=== PATIENT | male | born 1970 | race Caucasian/White ===

== ENCOUNTER 2016-12-05 23:08 | Emergency (ER) | payer OTHER ==
[~2016-12-05] VITALS: Ht 177.8 cm; Wt 68.0 kg
[~2016-12-05 23:08] MED LIST: ACCUNEB SO1.25 MG/1 INH; ALBUTEROL INH; ALPRAZOLAM; AUGMENTIN 875-1 EACH PO; AUGMENTIN 875875 MG PO; BACTRIM DS TAB1 EACH PO; CARISOPRODOL 3350 MG PO; CIPROFLOXACIN500 M1 PO; CITRATE OF MAG296 ML PO; CLEOCIN HCL150 MG PO; CLEOCIN HCL300 MG PO; COLACE100 MG PO; COMBIVIR; COMBIVIR PO; COMBIVIR TABLE1 EACH; DAPSONE100 MG PO; DOXYCYCLINE 10100 M1 PO; DOXYCYCLINE 10100 MG PO; EPSICOM; EPZICOM1 TA1 PO; FLEXERIL PO; HIV MED; HYDROCODON-ACE1 EAC1 PO; HYDROCODON-ACE1 EAC7; HYDROCODON-ACE1 EAC7 PO; HYDROCODON-ACE1 EACH PO; IBUPROFEN 600600 M1 PO; IBUPROFEN 800800 M1 PO; IBUPROFEN 800800 MG PO; KALETRA 200-501 EACH PO; KEFLEX250 MG PO; KEFLEX500 MG PO; LORTAB 5 MG/5001 TA1 PO; NAPROSYN500 MG PO; NORCO 5-325 TA1 EACH PO; OXYBUTYNIN 5 MG5 M2 PO; OXYCODONE HCL 55 MG PO; OXYCONTIN20 MG PO; PROAIR HFA8.5 GM INH; ROXICODONE5 M2 PO; TOBREX3.5 GM OP; TOBREX5 ML OPHTHALMIC; TRAMADOL 50 MG50 MG PO; TUSSIONEX PENN473 ML PO; ULTRAM 50MG TAB50 MG PO; VALIUM5 MG PO; VICOPROFEN 2001 EAC1 PO; XANAX 0.25 MG0.25 MG; XANAX 0.25 MG0.25 MG PO; XANAX 0.5 MG0.5 M1 PO; ZPAK PO; [UNRECOGNIZED DRUG - REMARK]
[2016-12-05 23:10] VITALS: BP 122/80
[2016-12-05] MEDS ORDERED: PREDNISONE 20 M20 MG PO (23:43)
[2016-12-05] MEDS ORDERED: GENTAMICIN SU3 MG/ML OPHTHALMIC (23:43)
== END 2016-12-06 | disposition home or self-care (01) ==
LOC: ER 23:08
DX: H16.133 Photokeratitis, bilateral (principal); F17.210 Nicotine dependence, cigarettes, uncomplicated; Z21 Asymptomatic human immunodeficiency virus [HIV] infection status; Z88.6 Allergy status to analgesic agent; Z88.2 Allergy status to sulfonamides

== ENCOUNTER 2017-01-22 09:25 | Inpatient (IN) | payer OTHER ==
[~2017-01-22] VITALS: Ht 177.8 cm; Wt 61.2 kg
--- NOTE | ~2017-01-22 | HC ---
[facility] [place] [address] CONSULTATION Name: MARLON WOMACK RAYNE Room #: 439-P [facility] IN M.R.#: [id number] Admission: 01/22/17 Attend Phys: Jeramy Lion Discharge: Date of : 66 Report #: [id number] THIS REPORT FOR: //name// CC: Jeramy Mosquera DATE OF SERVICE: 01/22/2017 REASON FOR CONSULTATION: I was asked to evaluate concerning fever in the setting of HIV. HISTORY OF PRESENT ILLNESS: The patient is a 46-year-old who has been off his antiretrovirals for last several months due to GI upset. He presents now with a 48 hours history of fever, chills, nausea and vomiting, been constipated, associated with myalgias, arthralgias and headache. No cough or sputum production. He has had some dysuria. Last stool has been several days ago. No rash. No arthritis symptoms. He has had no travel outside the [place]. He states he lives alone. He is on disability. No reported opportunistic infections. He does not know what his viral load or CD4 count is. ALLERGIES: SULFA, TYLENOL. MEDICATIONS: As noted on his MAR, on no medications prior to his admission. PAST MEDICAL HISTORY: Hepatitis C, HIV, multiple knee surgeries, left facial reconstruction, multiple head injuries, bilateral herniorrhaphy soft tissue infection of his foot. FAMILY HISTORY: Noncontributory. SOCIAL HISTORY: He is a smoker of cigarettes. No significant alcohol intake, previous marijuana screen, denies any IV drug use. REVIEW OF SYSTEMS: Noted above. PHYSICAL EXAMINATION: VITAL SIGNS: Temperature is 38.4, pulse 103, blood pressure 98/63. GENERAL: The patient was diaphoretic, multiple tattoos. No rash. He was in significant discomfort, lying face down on his bed on arrival. He did not rollover to allow me to complete his examination. No adenopathy. HEENT: Eyes: Conjunctival injection. Mouth: Dentures, otherwise unremarkable. NECK: Supple, no adenopathy. LUNGS: Clear. HEART: Tachycardic and regular. ABDOMEN: Soft. Very mild left lower quadrant tenderness. No mass, no guarding [facility] [address] [place] [address] CONSULTATION Name: MARLON WOMACK Room #: [address] [place] [address] [place] ..#: [id number] Admission: 01/22/17 Attend Phys: Jeramy Lion Discharge: Date of : 66 Report #: [id number] or rebound. No hepatosplenomegaly or mass. Perirenal examination was normal. EXTREMITIES: Unremarkable. NEUROLOGIC: Nonfocal. LABORATORY STUDIES: Hemoglobin 13.3, white count 7.3, differential unremarkable, platelet count 307,000. Sodium 131, potassium 4, bicarbonate 24, creatinine 1.3. Liver function tests normal. Lactate 1.4, flu antigen negative. Blood culture is pending. Chest x-ray clear. IMPRESSION: A 46-year-old HIV, suspected AIDS with fever, indeterminate etiology. Suspect secondary infection, community acquired would be most likely, urinary tract infection yet not ruled out, opportunistic infection also considered. Recommend broad antibiotic coverage after cultures of urine and blood have been obtained. Obtain a CD4 count. Rehydrate and reevaluate tomorrow. We will need to monitor his abdominal symptoms right now, did not appear to have an acute abdomen. His lipase was normal. We will also check urine drug screen. <ELECTRONICALLY SIGNED> By: Luca Jolly MD 01/23/17 0844 [id number] [id number] Luca Jolly MD /nt
[~2017-01-22 09:25] MED LIST changes: +GENTAMICIN SU3 MG/ML OPHTHALMIC; +PREDNISONE 20 M20 MG PO
[2017-01-22 09:27] VITALS: BP 98/63
[2017-01-22 10:43] LABS: ABSOLUTE NEUTROPHILS 5.8 thou/uL (1.4-8.2); BASOPHILS 0.4 % (0.0-2.0); EOSINOPHILS 2.2 % (0.0-3.0); HEMOGLOBIN 13.3 gm/dL (14.0-18.0); MCH 27.9 pg (26.0-34.0); MCHC 33.2 g/dL (28.0-37.0); MCV 83.9 fL (80.0-100.0); PLATELET COUNT 307 thou/uL (150-400); POLYS 79.4 % (36.0-66.0); RBC 4.77 mil/uL (4.50-6.00); RDW 13.2 % (10.5-14.5); WBC 7.3 thou/uL (4.0-11.0)
[2017-01-22 10:46] LABS: MANUAL DIFF NO
[2017-01-22 10:53] LABS: ANION GAP 10 mmol/L (7-16); BUN 17 mg/dL (7-18); CHLORIDE 97 mmol/L (98-107); CO2 24 mmol/L (21-32); CREATININE 1.3 mg/dL (0.7-1.3); GLUCOSE 99 mg/dL (74-106); POTASSIUM 4.1 mmol/L (3.5-5.1); SODIUM 131 mmol/L (136-145)
[2017-01-22 10:57] LABS: ALKALINE PHOSPHATASE 86 U/L (46-116); DIRECT BILIRUBIN < 0.1 mg/dL (<0.1-0.3); SGOT 21 U/L (15-37); SGPT 20 U/L (30-65); TOTAL BILIRUBIN 0.3 mg/dL (<0.1-1.0); TOTAL PROTEIN 7.7 g/dL (6.4-8.2)
[2017-01-22 14:42] VITALS: BP 92/50
[2017-01-22 14:47] VITALS: BP 103/57
[2017-01-22 19:53] VITALS: BP 104/52
[2017-01-22 21:16] LABS: URINE BILIRUBIN NEGATIVE (Negative); URINE BLOOD TRACE (Negative); URINE COLOR YELLOW; URINE GLUCOSE-RANDOM* NEGATIVE (Negative); URINE KETONES NEGATIVE (Negative); URINE LEUKOCYTES-REFLEX 3+ (Negative); URINE PROTEIN (DIPSTICK) NEGATIVE (Negative); URINE SPECIFIC GRAVITY <= 1.005 (1.003-1.035); URINE UROBILINOGEN 0.2 E.U./dl (0.2-1.0)
[2017-01-22 21:24] LABS: AMP/METHAMP POSITIVE (Negative); BARBITURATES Negative (Negative); BENZODIAZEPINES Negative (Negative); COCAINE Negative (Negative); METHADONE Negative (Negative); OPIATES POSITIVE (Negative); PCP Negative (Negative); THC Negative (Negative)
[2017-01-22 21:31] LABS: CASTS None Seen /LPF (None Seen); CRYSTALS None Seen /LPF (None Seen); RENAL EPITHELIAL CELLS 0-3 Few /LPF (None Seen); SQUAMOUS None Seen /LPF (0-3); URINE WBC-REFLEX >25 Many /HPF (0-5)
[2017-01-22 21:32] LABS: URINE RBC 0-2 Rare /HPF (0-2)
[2017-01-23 03:23] LABS: ABSOLUTE NEUTROPHILS 3.3 thou/uL (1.4-8.2); BASOPHILS 1.1 % (0.0-2.0); EOSINOPHILS 5.3 % (0.0-3.0); HEMATOCRIT 36.6 % (42.0-52.0); HEMOGLOBIN 12.1 gm/dL (14.0-18.0); LYMPHOCYTES 14.8 % (24.0-44.0); MCH 27.6 pg (26.0-34.0); MCV 83.7 fL (80.0-100.0); MONOCYTES 7.7 % (1.0-8.0); PLATELET COUNT 263 thou/uL (150-400); POLYS 71.1 % (36.0-66.0); RBC 4.37 mil/uL (4.50-6.00); WBC 4.7 thou/uL (4.0-11.0)
[2017-01-23 03:26] LABS: MANUAL DIFF NO
[2017-01-23 03:43] LABS: ALBUMIN 2.4 g/dL (3.4-5.0); CALCIUM 7.7 mg/dL (8.5-10.1); POTASSIUM 3.7 mmol/L (3.5-5.1); TOTAL BILIRUBIN 0.2 mg/dL (<0.1-1.0); TOTAL PROTEIN 6.6 g/dL (6.4-8.2)
[2017-01-23 04:51] VITALS: BP 109/68
[2017-01-23 08:00] VITALS: BP 91/51
[2017-01-23 14:08] LABS: CD3 % 77.3 % (57.5-86.2); CD4 % 4.1 % (30.8-58.5); CD4:CD8 0.06 (0.92-3.72); CD8 % 73.3 % (12.0-35.5)
[2017-01-23 16:00] VITALS: BP 94/60
[2017-01-23 16:12] LABS: HEPATITIS C VIRUS AB 2.8 (0.0-0.9)
[2017-01-23 21:45] VITALS: BP 118/78
[2017-01-24 04:15] VITALS: BP 100/80
[2017-01-24 08:00] VITALS: BP 99/63
[2017-01-24 13:56] LABS: HEMATOCRIT 40.2 % (42.0-52.0); HEMOGLOBIN 13.4 gm/dL (14.0-18.0); MCH 27.7 pg (26.0-34.0); MCHC 33.4 g/dL (28.0-37.0); MCV 83.1 fL (80.0-100.0); RBC 4.83 mil/uL (4.50-6.00); WBC 3.9 thou/uL (4.0-11.0)
[2017-01-24 14:08] LABS: ALBUMIN 2.7 g/dL (3.4-5.0); CALCIUM 8.4 mg/dL (8.5-10.1); CREATININE 0.6 mg/dL (0.7-1.3); PHOSPHORUS 3.5 mg/dL (2.5-4.9); POTASSIUM 4.1 mmol/L (3.5-5.1)
[2017-01-24 14:59] VITALS: BP 121/81
[2017-01-24 19:13] VITALS: BP 105/71
[2017-01-25 05:26] VITALS: BP 153/73
[2017-01-25 06:41] LABS: CALCIUM 8.4 mg/dL (8.5-10.1); CREATININE 0.7 mg/dL (0.7-1.3); POTASSIUM 3.8 mmol/L (3.5-5.1)
[2017-01-25] MEDS ORDERED: DOXYCYCLINE 10100 MG PO (10:28)
[2017-01-25] MEDS ORDERED: TRAMADOL 50 MG50 MG PO (10:28)
[2017-01-25 10:40] VITALS: BP 153/73
[2017-01-27 16:06] LABS: HIV-1 BY PCR 53160 (()); HIV-1 PCR LOG 4.726 (())
== END 2017-01-25 12:53 | disposition home or self-care (01) | DRG 974 ==
LOC: ER 09:25 → 4S 13:53 → EROBS 13:53 → 4S 14:45
PROVIDERS: Emergency Medicine; Hospitalist; Specialist
DX: B20 Human immunodeficiency virus [HIV] disease (principal); J18.9 Pneumonia, unspecified organism; E43 Unspecified severe protein-calorie malnutrition; E87.1 Hypo-osmolality and hyponatremia; N39.0 Urinary tract infection, site not specified; F17.210 Nicotine dependence, cigarettes, uncomplicated; E86.1 Hypovolemia; Z88.2 Allergy status to sulfonamides; Z88.8 Allergy status to other drugs, medicaments and biological substances; Z87.81 Personal history of (healed) traumatic fracture; Z91.14 Patient's other noncompliance with medication regimen
CPT/HCPCS: 10102; 27000

== ENCOUNTER 2017-02-06 05:36 | Inpatient (IN) | payer OTHER ==
[~2017-02-06] VITALS: Ht 177.8 cm; Wt 65.9 kg
[2017-02-06] VITALS (19 sets, daily range): BP systolic 40–179; BP diastolic 25–147
--- NOTE | ~2017-02-06 | HC ---
[facility] [place] [address] CONSULTATION Name: MARLON WOMACK Room #: 242-P ADM IN M.R.#: [id number] Admission: 02/06/17 Attend Phys: Mo Ji MD Discharge: Date of : 66 Report #: [id number] THIS REPORT FOR: //name// CC: Mo Ji NO PCP REASON FOR CONSULTATION: I was asked to evaluate concerning prostatic abscess. HISTORY OF PRESENT ILLNESS: The patient is a 46-year-old HIV positive man who has been off his antiretroviral therapy. He was hospitalized 10 days ago with left lower lobe pneumonia and urinary tract infection symptoms. Thought likely urethritis, possible prostatitis. He had no perineal or prosthetic tenderness at that time. Urinalysis showed some pyuria with cultures negative for bacteria. GC and Chlamydia were negative. He was treated with IV antibiotic therapy during his hospitalization and dismissed on doxycycline. He returns today with worsening of lower abdominal pain, headache, cough with sputum production, yellow in nature. He has had some lower back pain, constipation and emesis. Unclear if he is followed up with Dr. Lisa Mosquera, his HIV physician since his last discharge. CD4 count last hospital stay was 45. During the workup in the Emergency Room, he was found to have a prostatic abscess. He was taken to surgery where a drainage procedure was performed by Dr. Sol. No intraoperative complications were noted. He did have blood pressure drop into the 80s; that has responding to IV fluids. The patient is now in the recovery room complaining of pain, otherwise reasonably stable. ALLERGIES: To SULFA and TYLENOL. 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 MEDICATIONS: Include vancomycin and Zosyn. FAMILY HISTORY: Noncontributory. SOCIAL HISTORY: He is a smoker of cigarettes. No significant alcohol intake. He does use recreational drugs as noted on his drug screen. These include methamphetamine. REVIEW OF SYSTEMS: Noted above. PHYSICAL EXAMINATION: VITAL SIGNS: Temperature is 101.7 and blood pressure 96/60. GENERAL: He was awake and responsive. He is on oxygen per nasal cannula. HEENT: Unremarkable. NECK: Supple. LUNGS: Clear. [address] [address] CONSULTATION Name: MARLON WOMACK Nanda Room #: [address] [place] [address] [place] [facility].#: [id number] Admission: 02/06/17 Attend Phys: Mo Ji MD Discharge: Date of : 66 Report #: [id number] HEART: Regular without murmur. ABDOMEN: Soft. Mild lower abdominal tenderness, no hepatosplenomegaly or mass. Indwelling Lee catheter. EXTREMITIES: Unremarkable. LABORATORY STUDIES: CSF examination was normal. LP was done in the Emergency Room. Sodium 136, potassium 4.1, chloride 99, bicarbonate of 25, creatinine 1.1 and AST 27. Liver function test otherwise normal. Albumin of 3.1. Lactate initially 2.7, now 0.8. Drug screen positive for marijuana and methamphetamines. Hemoglobin 14.3, white count 8.6 and platelet count 279,000. Differential 83% segs, 1% band and 9% lymphs. PSA on 01/23 was 5.1. HIV PCR on 01/22 was 53,000. Urinalysis today, many wbc's, few rbc's and moderate bacteria. Cultures of blood and urine and prostatic abscess pending. I discussed with laboratory and our culturing for aerobic and anaerobic bacteria, fungus and AFB. CT scan of the pelvis; new rim-enhancing, low attenuated cystic area within the prostate consistent with abscess. CT of the head negative. IMPRESSION: A 46-year-old human immunodeficiency virus positive individual with acquired immunodeficiency syndrome. CD4 count 45. Prostatic abscess, status post drainage. Sepsis responding to intravenous fluids, antibiotics and drainage procedure. PLAN: Recommend broad antibiotic coverage, pending Gram stain and cultures. The patient will be transferred to the Intensive Care Unit for pain management and fluid resuscitation and close monitoring for the next 24 hours. <ELECTRONICALLY SIGNED> By: Luca Jolly MD 02/07/17 1135 1825 0923 Luca Jolly MD /nt
--- NOTE | ~2017-02-06 | O ---
[facility] [place] [address] OPERATIVE REPORT Name: MARLON WOMACK Room #: 456-P [facility] IN .R.#: [id number] Admission: 02/06/17 Attend Phys: Mo Ji MD Discharge: Date of : 66 Report #: [id number] THIS REPORT FOR: //name// CC: Mo JOHNSON [facility] DATE OF SERVICE: 02/06/2017 PREOPERATIVE DIAGNOSIS: Prostatic abscess, urinary retention. POSTOPERATIVE DIAGNOSIS: Prostatic abscess, urinary retention. PROCEDURE: Cystoscopy, transurethral drainage of prostatic abscess. SURGEON: Jean-Claude Sol M.D. ANESTHESIA: General. INDICATIONS: The patient is a 46-year-old gentleman who is acutely ill; he has a history of being HIV positive and reportedly stopped taking his medicine, he was recently hospitalized in fact was on antibiotics, but developed progressive symptoms. Today, he had severe lower abdominal discomfort with dysuria, difficulty voiding. CT scan showed a new rim enhancing lesion within the prostate consistent with a prostatic abscess. He was counseled with respect to treatment options and has opted for drainage. I discussed transurethral, transrectal and perineal drainage with him. The lesion looks near the urethra and amenable to transurethral drainage. Risk of bleeding and life threatening sepsis have been discussed. He also understands that he could develop sexual dysfunction, and/or retrograde ejaculation after this procedure. I have explained this is potentially a life-threatening condition. I also explained that I could not predict or see all the potential risks, complications or side effects. DESCRIPTION OF PROCEDURE: After obtaining informed consent, he was brought to the operating room, general anesthetic was administered. He was then placed in lithotomy position, did a genital exam and as I palpated the prostate, secretions were obtained, which were via the urethra, which were then sent for aerobic and anaerobic, mycobacterial culture. He was then prepped and draped sterilely. IV antibiotics were administered. A time-out was performed. A 21-Senegalese ACMI cystoscope was introduced under direct vision. Anterior urethra normal. Prostatic urethra short and nonobstructive. There is some edema on the floor of the prostate. Upon entering the bladder, the right hemitrigone and ureter was normal in configuration. There was , probably tracking it from the prostate at the level of the bladder neck and also left hemitrigone. I did identify the left ureter. There were no other bladder lesions. Bladder was drained. I did dilate the urethra to 28 Senegalese with the Latha sounds. I [address] [address] OPERATIVE REPORT Name: MARLON WOMACK Nanda IV Room #: 456-P [facility] IN ..#: [id number] Admission: 02/06/17 Attend Phys: Mo Ji MD Discharge: Date of : 66 Report #: [id number] then used the resectoscope to focus on the left side of the prostate. I took down some prostatic tissue near the ejaculatory duct, I was not certain if I was within the abscess cavity. At this point, a rectal exam was performed and I could see purulent matter being expressed just proximal to the verumontanum from the left-sided ejaculatory duct. I changed gloves and resume the procedure. I was able to unroof the abscess cavity in its entirety. It was fairly large and I could even place the entire scope within the abscess cavity elevating it was totally drained. A portion of it did appear to cross the midline. I had to resect some prostate tissue to adequately get down to the abscess cavity to be certain that it was totally drained. At this point, I examined for hemostasis. I was certain the cavity was very well drained. There is no visible purulent material. All chips were removed. A 22-Senegalese 3-way Lee catheter with 30 mL of water in the balloon was placed. A continuous irrigation was applied. He was transferred to the recovery room where he arrived in stable condition. FINDINGS: Shared with the patient upon arrival to the recovery room. Prior to surgery, he had requested that I do not call anybody about his situation. If he changes his mind, I will do so. <ELECTRONICALLY SIGNED> By: Jean-Claude Sol MD 02/09/17 0652 1814 0005 Jean-Claude Sol MD /nt
--- NOTE | ~2017-02-06 | S ---
[facility] [place] [address] SURGICAL PATH RPT PROCEDURE Name: RADHA LOPEZ IV Room #: 456-P ADM IN M.R.#: [id number] Admission: 02/06/17 Date of : 66 Discharge: Report #: [id number] Path Case #: [id number] PATHOLOGY REPORT COLLECTION DATE: 02/06/2017 RECEIVED DATE: 02/07/2017 SUBMITTING PHYS: Dr. Jean-Claude Sol OTHER PHYS: Dr. Mo Ji SPECIMEN(S) RECEIVED: A.Prostate tissue * * * * * * * * * * * * FINAL DIAGNOSIS: Prostatic tissue, TURP: - Glandular and stromal hyperplasia. - Negative for malignancy. - Reactive urothelium lining several fragments showing no evidence of dysplasia. (IUV:mml; d/t: 02/08/2017) PATHOLOGIST: Shereen Baeza M.D. REPORT ELECTRONICALLY SIGNED BY: Shereen Baeza M.D. DATE/TIME: 02/08/2017 16:29 * * * * * * * * * * * * GROSS PATHOLOGY: Received in formalin labeled "Radha Lopez IV, prostate tissue," is a 5 gram, 4.8 x 2.2 x 1.1 cm aggregate of multiple irregular segments of nodular mercado tissue. The specimen is submitted entirely in cassette A1 through A6. (CAA; 02/07/2017) CLINICAL HISTORY: Prostatic abscess INITIAL CPT CODE(S): A; 67490 Professional services performed by [facility] at [facility] [address], [place] [address] Technical services performed by [facility] at [address] [place] [id number]. [facility] [address] [place] [address] SURGICAL PATH RPT PROCEDURE Name: RADHA LOPEZ Room #: 456-P ADM IN M.R.#: [id number] Admission: 02/06/17 Date of : 66 Discharge: Report #: [id number] Path Case #: [id number] [address] PHONE: [phone] DIRECTOR: Ck Kee M.D. * * * END OF REPORT * * *
[2017-02-06 06:08] LABS: HEMATOCRIT 42.5 % (42.0-52.0); HEMOGLOBIN 14.3 gm/dL (14.0-18.0); MCH 28.6 pg (26.0-34.0); MCHC 33.6 g/dL (28.0-37.0); MCV 85.2 fL (80.0-100.0); PLATELET COUNT 279 thou/uL (150-400); RBC 4.99 mil/uL (4.50-6.00); RDW 13.6 % (10.5-14.5); WBC 8.6 thou/uL (4.0-11.0)
[2017-02-06 06:15] LABS: MANUAL DIFF YES
[2017-02-06 06:17] LABS: POTASSIUM 4.1 mmol/L (3.5-5.1)
[2017-02-06 07:03] LABS: CALCIUM 8.2 mg/dL (8.5-10.1); CREATININE 1.1 mg/dL (0.7-1.3)
[2017-02-06 07:14] LABS: ABSOLUTE NEUTROPHILS 7.2 thou/uL (1.4-8.2); ANISOCYTOSIS SLIGHT; TOTAL CELL COUNT 100
[2017-02-06 07:25] LABS: ALBUMIN 3.1 g/dL (3.4-5.0); ALKALINE PHOSPHATASE 92 U/L (46-116); DIRECT BILIRUBIN < 0.1 mg/dL (<0.1-0.3); SGOT 27 U/L (15-37); SGPT 23 U/L (30-65); TOTAL BILIRUBIN 0.4 mg/dL (<0.1-1.0); TOTAL PROTEIN 7.9 g/dL (6.4-8.2)
[2017-02-06 07:28] LABS: APTT 26.7 Seconds (24.5-32.8); PROTIME 10.5 Seconds (9.3-11.4)
[2017-02-06 08:32] LABS: URINE BILIRUBIN NEGATIVE (Negative); URINE BLOOD 2+ (Negative); URINE COLOR YELLOW; URINE GLUCOSE-RANDOM* NEGATIVE (Negative); URINE KETONES NEGATIVE (Negative); URINE LEUKOCYTES-REFLEX 2+ (Negative); URINE PROTEIN (DIPSTICK) 1+ (Negative); URINE UROBILINOGEN 0.2 E.U./dl (0.2-1.0)
[2017-02-06 08:46] LABS: AMP/METHAMP POSITIVE (Negative); BARBITURATES Negative (Negative); BENZODIAZEPINES Negative (Negative); COCAINE Negative (Negative); METHADONE Negative (Negative); OPIATES Negative (Negative); PCP Negative (Negative); THC POSITIVE (Negative)
[2017-02-06 09:04] LABS: CRYSTALS None Seen /LPF (None Seen); SQUAMOUS 0-3 Few /LPF (0-3)
[2017-02-06 09:05] LABS: CASTS None Seen /LPF (None Seen); URINE RBC 3-10 Few /HPF (0-2); URINE WBC-REFLEX >25 Many /HPF (0-5)
[2017-02-06 09:15] LABS: CSF GLUCOSE 53 mg/dL (40-70)
[2017-02-06 09:24] LABS: CSF CLARITY CLEAR; CSF COLOR COLORLESS; MANUAL DIFF NO; NUMBER OF TUBES 4; VOLUME 8 ml
[2017-02-06 09:25] LABS: CSF WBC 1 /mm3 (0-10)
[2017-02-06 18:24] LABS: URINE BILIRUBIN NEGATIVE (Negative); URINE BLOOD 3+ (Negative); URINE COLOR YELLOW; URINE GLUCOSE-RANDOM* NEGATIVE (Negative); URINE KETONES NEGATIVE (Negative); URINE LEUKOCYTES-REFLEX 1+ (Negative); URINE PROTEIN (DIPSTICK) NEGATIVE (Negative); URINE SPECIFIC GRAVITY 1.025 (1.003-1.035); URINE UROBILINOGEN 0.2 E.U./dl (0.2-1.0)
[2017-02-06 18:35] LABS: CASTS None Seen /LPF (None Seen); SQUAMOUS 0-3 Few /LPF (0-3)
[2017-02-06 18:36] LABS: CRYSTALS None Seen /LPF (None Seen); URINE RBC >20 Many /HPF (0-2); URINE WBC-REFLEX >25 Many /HPF (0-5)
[2017-02-07] VITALS (46 sets, daily range): BP systolic 77–134; BP diastolic 46–77
[2017-02-07 11:06] LABS: ABSOLUTE NEUTROPHILS 2.4 thou/uL (1.4-8.2); BASOPHILS 0.7 % (0.0-2.0); EOSINOPHILS 7.5 % (0.0-3.0); HEMATOCRIT 33.4 % (42.0-52.0); LYMPHOCYTES 20.9 % (24.0-44.0); MCH 28.5 pg (26.0-34.0); MCHC 33.4 g/dL (28.0-37.0); MCV 85.3 fL (80.0-100.0); MONOCYTES 5.9 % (1.0-8.0); RBC 3.91 mil/uL (4.50-6.00); RDW 13.4 % (10.5-14.5); WBC 3.8 thou/uL (4.0-11.0)
[2017-02-07 11:11] LABS: MANUAL DIFF NO
[2017-02-07 11:17] LABS: CALCIUM 7.3 mg/dL (8.5-10.1); CREATININE 0.9 mg/dL (0.7-1.3); HEMOGLOBIN 11.2 gm/dL (14.0-18.0); PLATELET COUNT 150 thou/uL (150-400); POTASSIUM 3.8 mmol/L (3.5-5.1)
[2017-02-07 11:25] LABS: ALBUMIN 2.2 g/dL (3.4-5.0); MAGNESIUM 1.8 mg/dL (1.8-2.4); TOTAL BILIRUBIN 0.3 mg/dL (<0.1-1.0); TOTAL PROTEIN 5.8 g/dL (6.4-8.2)
[2017-02-08 04:15] VITALS: BP 119/48
[2017-02-08 07:01] VITALS: BP 105/47
[2017-02-08 12:01] VITALS: BP 99/60
[2017-02-08 20:15] VITALS: BP 110/61
[2017-02-09 04:59] LABS: HEMOGLOBIN 12.1 gm/dL (14.0-18.0); MCH 28.3 pg (26.0-34.0); MCHC 33.7 g/dL (28.0-37.0); RBC 4.29 mil/uL (4.50-6.00); RDW 13.1 % (10.5-14.5); WBC 2.8 thou/uL (4.0-11.0)
[2017-02-09 05:00] VITALS: BP 130/81
[2017-02-09 05:05] LABS: CALCIUM 7.9 mg/dL (8.5-10.1); CREATININE 0.9 mg/dL (0.7-1.3); POTASSIUM 3.6 mmol/L (3.5-5.1)
[2017-02-09 07:30] VITALS: BP 113/76
[2017-02-09] MEDS ORDERED: GENVOYA TABLET1 EACH PO (09:28)
[2017-02-09] MEDS ORDERED: LEVAQUIN 750 M750 MG PO (09:28)
[2017-02-09 11:18] VITALS: BP 108/65
[2017-02-09 15:23] VITALS: BP 105/68
[2017-02-09 21:37] VITALS: BP 96/52
[2017-02-10 03:40] VITALS: BP 127/89
[2017-02-10 05:39] LABS: HEMATOCRIT 33.7 % (42.0-52.0); HEMOGLOBIN 11.3 gm/dL (14.0-18.0); MCH 28.3 pg (26.0-34.0); MCHC 33.6 g/dL (28.0-37.0); MCV 84.4 fL (80.0-100.0); RDW 13.6 % (10.5-14.5); WBC 3.5 thou/uL (4.0-11.0)
[2017-02-10 21:12] VITALS: BP 109/64
[2017-02-11 04:00] VITALS: BP 114/70
[2017-02-11 07:45] VITALS: BP 102/54
[2017-02-11] MEDS ORDERED: OXYCODONE HCL 55 MG PO (09:54)
[2017-02-11 10:15] VITALS: BP 102/54
== END 2017-02-11 11:38 | disposition home or self-care (01) | DRG 974 ==
LOC: ER 05:36 → 4W 07:55 → EROBS 07:55 → ICU 09:07 → 4W 09:08 → ICU 19:24 → 4W 02-07 16:24
PROVIDERS: Emergency Medicine; Hospitalist; Nurse Practitioner; Specialist
PROC: 0V9 Male Reproductive System, Drainage (ICD-10-PCS; principal; 2017-02-06)
PROC: 009U3ZX Drainage of Spinal Canal, Percutaneous Approach, Diagnostic (ICD-10-PCS; 2017-02-06)
PROC: B548ZZA Ultrasonography of Superior Vena Cava, Guidance (ICD-10-PCS; 2017-02-07)
PROC: 02HV33Z Insertion of Infusion Device into Superior Vena Cava, Percutaneous Approach (ICD-10-PCS; 2017-02-07)
DX: A41.9 Sepsis, unspecified organism (principal); B20 Human immunodeficiency virus [HIV] disease; E43 Unspecified severe protein-calorie malnutrition; J18.9 Pneumonia, unspecified organism; N41.2 Abscess of prostate; F17.210 Nicotine dependence, cigarettes, uncomplicated; K59.00 Constipation, unspecified; I95.9 Hypotension, unspecified; E83.51 Hypocalcemia; N41.9 Inflammatory disease of prostate, unspecified; Z91.14 Patient's other noncompliance with medication regimen; Z79.899 Other long term (current) drug therapy; Z87.440 Personal history of urinary (tract) infections; Z87.81 Personal history of (healed) traumatic fracture; Z88.8 Allergy status to other drugs, medicaments and biological substances; Z88.2 Allergy status to sulfonamides
CPT/HCPCS: 10047; 10078; 27000; 50010; 50101; 50455; 56815; 57006; 62110; 62900; 70005

== ENCOUNTER 2017-03-09 17:53 | Emergency (ER) | payer OTHER ==
[~2017-03-09] VITALS: Ht 177.8 cm; Wt 65.8 kg
[~2017-03-09 17:53] MED LIST changes: +GENVOYA TABLET1 EACH PO; +LEVAQUIN 750 M750 MG PO
[2017-03-09 19:15] LABS: ABSOLUTE NEUTROPHILS 5.6 thou/uL (1.4-8.2); BASOPHILS 0.4 % (0.0-2.0); EOSINOPHILS 1.9 % (0.0-3.0); HEMATOCRIT 35.8 % (42.0-52.0); HEMOGLOBIN 12.3 gm/dL (14.0-18.0); LYMPHOCYTES 19.2 % (24.0-44.0); MCH 28.9 pg (26.0-34.0); MCHC 34.5 g/dL (28.0-37.0); MCV 83.7 fL (80.0-100.0); MONOCYTES 7.2 % (1.0-8.0); PLATELET COUNT 197 thou/uL (150-400); POLYS 71.3 % (36.0-66.0); RBC 4.27 mil/uL (4.50-6.00); RDW 14.2 % (10.5-14.5); WBC 7.8 thou/uL (4.0-11.0)
[2017-03-09 19:16] LABS: MANUAL DIFF NO
[2017-03-09 19:22] LABS: CALCIUM 8.6 mg/dL (8.5-10.1); CREATININE 1.1 mg/dL (0.7-1.3); POTASSIUM 3.6 mmol/L (3.5-5.1)
[2017-03-09] MEDS ORDERED: KEFLEX500 MG PO (19:38)
[2017-03-09] MEDS ORDERED: PREDNISONE 20 M20 MG PO (19:38)
[2017-03-09] MEDS ORDERED: NORCO 5-325 TA1 EACH PO (19:38)
[2017-03-09 20:35] VITALS: BP 110/68
== END 2017-03-09 20:38 | disposition home or self-care (01) ==
LOC: ER 17:53
PROVIDERS: Emergency Medicine
DX: M10.9 Gout, unspecified (principal); L03.116 Cellulitis of left lower limb; Z86.19 Personal history of other infectious and parasitic diseases; Z98.890 Other specified postprocedural states; Z88.6 Allergy status to analgesic agent; Z88.2 Allergy status to sulfonamides

== ENCOUNTER 2017-04-15 19:46 | Emergency (ER) | payer OTHER ==
[~2017-04-15] VITALS: Ht 177.8 cm; Wt 68.0 kg
[2017-04-15 20:20] LABS: ABSOLUTE NEUTROPHILS 2.1 thou/uL (1.4-8.2); BASOPHILS 0.5 % (0.0-2.0); HEMATOCRIT 50.9 % (42.0-52.0); HEMOGLOBIN 17.3 gm/dL (14.0-18.0); LYMPHOCYTES 38.5 % (24.0-44.0); MCH 29.4 pg (26.0-34.0); MCHC 34.1 g/dL (28.0-37.0); MCV 86.3 fL (80.0-100.0); MONOCYTES 8.9 % (1.0-8.0); PLATELET COUNT 250 thou/uL (150-400); POLYS 49.1 % (36.0-66.0); RDW 14.7 % (10.5-14.5); WBC 4.2 thou/uL (4.0-11.0)
[2017-04-15 20:21] LABS: MANUAL DIFF NO
[2017-04-15 20:24] LABS: CALCIUM 9.2 mg/dL (8.5-10.1); POTASSIUM 4.6 mmol/L (3.5-5.1)
[2017-04-15 22:35] LABS: URINE BILIRUBIN NEGATIVE (Negative); URINE BLOOD 1+ (Negative); URINE COLOR YELLOW; URINE GLUCOSE-RANDOM* NEGATIVE (Negative); URINE KETONES NEGATIVE (Negative); URINE NITRITE NEGATIVE (Negative); URINE PROTEIN (DIPSTICK) NEGATIVE (Negative); URINE UROBILINOGEN 0.2 E.U./dl (0.2-1.0)
[2017-04-15 22:41] LABS: AMP/METHAMP POSITIVE (Negative); BARBITURATES Negative (Negative); BENZODIAZEPINES Negative (Negative); COCAINE Negative (Negative); METHADONE Negative (Negative); OPIATES Negative (Negative); PCP Negative (Negative); THC POSITIVE (Negative)
[2017-04-15 22:46] LABS: SQUAMOUS 0-3 Few /LPF (0-3)
[2017-04-15 22:47] LABS: BACTERIA None Seen /HPF (None Seen); CASTS None Seen /LPF (None Seen); CRYSTALS None Seen /LPF (None Seen); URINE RBC 0-2 Rare /HPF (0-2); URINE WBC 0-5 Rare /HPF (0-5)
[2017-04-15] MEDS ORDERED: NAPROSYN500 MG PO (22:51)
[2017-04-15] MEDS ORDERED: NORFLEX100 MG PO (22:51)
[2017-04-15 23:07] VITALS: BP 112/68
== END 2017-04-15 23:08 | disposition home or self-care (01) ==
LOC: ER 19:46
PROVIDERS: Physician Assistant
DX: R51 Headache (principal); F17.210 Nicotine dependence, cigarettes, uncomplicated; Z86.19 Personal history of other infectious and parasitic diseases; Z21 Asymptomatic human immunodeficiency virus [HIV] infection status; Z98.890 Other specified postprocedural states; Z87.440 Personal history of urinary (tract) infections; Z88.2 Allergy status to sulfonamides; Z88.6 Allergy status to analgesic agent

== ENCOUNTER 2017-04-22 13:41 | Inpatient (IN) | payer OTHER ==
[~2017-04-22] VITALS: Ht 177.8 cm; Wt 67.6 kg
--- NOTE | ~2017-04-22 | D ---
[facility] [place] [address] DISCHARGE SUMMARY Name: MARLON WOMACK IV Room #: 307-P [facility] IN .R.#: [id number] Admission: 04/22/17 Attend Phys: Devyn Bunn MD Discharge: 04/23/17 Date of : 66 Report #: [id number] THIS REPORT FOR: //name// CC: [place] physician/PCP Devyn Bunn DATE OF SERVICE: 04/23/2017 The patient left [facility] on 04/23/2017. ADMISSION DIAGNOSES: 1. Headache. Recent diagnosis of cryptococcal meningitis, with recent admission at [facility] and he left against medical advice. 2. Advanced human immunodeficiency virus disease. 3. Tobacco abuse/dependency. 4. Substance abuse. 5. Positive history of noncompliance. HISTORY OF PRESENT ILLNESS: This patient was admitted through the ER with a chief complaint of ataxia. The patient has been seen at the [facility] ER 1-1/2 weeks ago and left [facility]. Again, he sought care at the [facility]. He stated he had LP and a CT within last week. The patient stated that he was diagnosed with viral meningitis; however, he left the [facility] against medical advice and insisted that he was sent home. He was sent home with no antibiotic at that time. He stated that he has not been taking his HIV medication and he does not know about his CD4 count. He is moving all extremities, not confused at that time, but not a good historian. Had a right-sided posterior headache that radiated down to the right side of the neck. Question of fever. No nausea or vomiting. Denied any chest pain, abdominal pain. He was admitted for further management. HOSPITAL COURSE: The patient had further workup and Infectious Disease consult. His CD4 count was around 50. He had cryptococcal antigen positive. He was started on antifungal treatment. CSF: Wbc's 27, rbc's 51. Basically started the treatment for cryptococcal meningitis and started on antiretroviral treatment. See the Infectious Disease note for details. He was started on amphotericin B liposomal 4 mg per kg per IV and flucytosine 1500 mg q.i.d. Psychiatry was also concerned because of his altered mental status possibly like delirium. The patient was not the best to make his own decision. Also noted that the patient has been noncompliant with the treatment. Psych, Infectious Disease, all had been following throughout this hospitalization. Next morning, I was notified that patient had left, and I reviewed the note overnight. The patient basically left the building and security was notified. Please see all the notes in the chart for nursing report and all that. [address] [address] DISCHARGE SUMMARY Name: MARLON WOMACK Room #: 307-P [facility] IN M.R.#: [id number] Admission: 04/22/17 Attend Phys: Devyn Bunn MD Discharge: 04/23/17 Date of : 66 Report #: [id number] Sen, nurse practitioner was on-call that night and then she was notified by the nursing staff. Reviewing all the nursing reports, patient basically left and then they called the security. Security had been working to find the patient. Please see all the notes in the chart for further details. <ELECTRONICALLY SIGNED> By: Devyn Bunn MD 05/21/17 1949 0818 1008 Devyn Bunn MD /nt
--- NOTE | ~2017-04-22 | HC ---
[facility] [place] [address] CONSULTATION Name: MARLON WOMACK IV Room #: 307-P [facility] IN .R.#: [id number] Admission: 04/22/17 Attend Phys: Devyn Bunn MD Discharge: 04/23/17 Date of : 66 Report #: [id number] THIS REPORT FOR: //name// CC: [place] physician/PCP Devyn Bunn INFECTIOUS DISEASE CONSULTATION HISTORY OF PRESENT ILLNESS: A 46-year-old white man admitted with headaches, ataxia and lightheadedness and question passing out. The patient recently hospitalized at [facility] and diagnosed to have Cryptococcal meningitis. I did discuss the patient's situation with Dr. Leonardo Longoria and apparently, the patient received 3 doses of AmBisome and flucytosine and then he signed AMA. At present, the patient is making no sense, telling me tangential problems and telling me he only likes me and Dr. Lisa Mosquera. He is also acting a bit paranoid and he does not stop talking throughout the entire interview and physical exam, so much so that I had to do a quick history and physical exam and walk out of the room. Obviously, I did warn the patient he had Cryptococcal meningitis that is a possibly lethal disease in patients with HIV AIDS. In view of his altered mental status, he needs psychiatric consultation. PAST MEDICAL HISTORY: Longstanding history of HIV infection AIDS with CD4, lymphocyte count in the 50s and HIV RNA ____ in the 70,[address] Lisa Mosquera on the date of consultation. The patient apparently has not used medications. I was advised the patient is HLA-B 5701 negative. Consequently, he may be able to take Triumeq. Past medical history is positive also for history of recent episode of prostatitis. Previous episode of left foot cellulitis, chronic pain syndrome. Noncompliance. SOCIAL HISTORY: See H and P. FAMILY HISTORY: See H and P. REVIEW OF SYSTEMS: As above. PHYSICAL EXAMINATION: GENERAL: Chronically ill-appearing man, not toxic looking. VITAL SIGNS: Afebrile, pulse 80, respirations 24, BP 121/69. HEENT: Pupils reactive. Conjunctivae normal. Mouth: No thrush, periodontal disease. NECK: Mildly stiff. LUNGS: Clear. HEART: S1, S2. ABDOMEN: Soft, no masses or megaly. GENITALIA AND RECTAL: Deferred. EXTREMITIES: No clubbing, cyanosis. NEUROLOGIC: Grossly within normal limits. [facility] [address] [place] [address] CONSULTATION Name: MARLON WOMACK IV Room #: [address] [place] [address]#: [id number] Admission: 04/22/17 Attend Phys: Devyn Bunn MD Discharge: 04/23/17 Date of : 66 Report #: [id number] LABORATORY DATA: CSF exam revealed 27 WBCs, 51 RBCs, 71% of the WBCs are lymphocytes. CSF glucose of 40 and CSF protein 93. The CSF positive for Cryptococcal antigen, sodium 134, potassium 3.1, BUN 21, creatinine 1.4, SGPT 26. WBC 4.9, hemoglobin 14.7, platelets 224,000. MICROBIOLOGY DATA: CSF culture pending. CSF positive for Cryptococcal antigen. ASSESSMENT: 1. Acquired immunodeficiency syndrome. 2. Cryptococcal meningitis. 3. Noncompliance. SUGGESTIONS: Recommend treatment with parenteral amphotericin B liposomal 4 mg/kg daily for at least 7-10 days, ____ flucytosine 1500 mg q.i.d. Start Triumeq if available. Needs psychiatric consultation. Follow up and discharge with Dr. Lisa Mosquera. Dr. Bunn, thank you for requesting my suggestions. <ELECTRONICALLY SIGNED> By: Jose Raul Martin MD 04/25/17 1017 1339 1427 Jose Raul Martin MD /nt
[~2017-04-22 13:41] MED LIST changes: +NORFLEX100 MG PO
[2017-04-22 13:58] VITALS: BP 139/85
[2017-04-22 15:04] LABS: URINE BLOOD TRACE (Negative); URINE COLOR YELLOW; URINE GLUCOSE-RANDOM* NEGATIVE (Negative); URINE KETONES NEGATIVE (Negative); URINE LEUKOCYTES-REFLEX NEGATIVE (Negative); URINE PROTEIN (DIPSTICK) TRACE (Negative); URINE SPECIFIC GRAVITY 1.015 (1.003-1.035); URINE UROBILINOGEN 0.2 E.U./dl (0.2-1.0)
[2017-04-22 15:06] LABS: URINE BILIRUBIN NEGATIVE (Negative)
[2017-04-22 15:33] LABS: ABSOLUTE NEUTROPHILS 3.1 thou/uL (1.4-8.2); BASOPHILS 0.5 % (0.0-2.0); EOSINOPHILS 0.3 % (0.0-3.0); HEMATOCRIT 42.3 % (42.0-52.0); HEMOGLOBIN 14.7 gm/dL (14.0-18.0); LYMPHOCYTES 24.3 % (24.0-44.0); MANUAL DIFF NO; MCH 29.1 pg (26.0-34.0); MCHC 34.8 g/dL (28.0-37.0); MCV 83.6 fL (80.0-100.0); MONOCYTES 11.1 % (1.0-8.0); PLATELET COUNT 224 thou/uL (150-400); POLYS 63.8 % (36.0-66.0); RBC 5.06 mil/uL (4.50-6.00); RDW 13.9 % (10.5-14.5); WBC 4.9 thou/uL (4.0-11.0)
[2017-04-22 15:38] LABS: CALCIUM 9.3 mg/dL (8.5-10.1); CREATININE 1.4 mg/dL (0.7-1.3); POTASSIUM 3.1 mmol/L (3.5-5.1)
[2017-04-22 15:44] LABS: TOTAL BILIRUBIN 0.6 mg/dL (<0.1-1.0)
[2017-04-22 17:13] LABS: CSF GLUCOSE 40 mg/dL (40-70); CSF PROTEIN 93 mg/dL (15-45)
[2017-04-22 17:47] VITALS: BP 133/79
[2017-04-22 18:58] VITALS: BP 131/79
[2017-04-22 19:02] LABS: CSF CLARITY CLEAR; CSF COLOR COLORLESS; MANUAL DIFF YES; NUMBER OF TUBES 4; VOLUME 4 ml
[2017-04-22 19:08] LABS: CSF WBC 27 /mm3 (0-10)
[2017-04-22 19:25] VITALS: BP 141/94
[2017-04-22 19:52] LABS: CSF EOSINOPHILS 1 %
[2017-04-22 19:53] LABS: CSF MONONUCLEARS 19 %; CSF POLYS 6 %
[2017-04-23] VITALS: BP 133/88
[2017-04-23 04:30] VITALS: BP 121/69
[2017-04-23 04:33] VITALS: BP 133/88
[2017-04-23 08:05] LABS: HEMOGLOBIN 14.4 gm/dL (14.0-18.0); MCH 28.9 pg (26.0-34.0); MCHC 34.3 g/dL (28.0-37.0); MCV 84.3 fL (80.0-100.0); RBC 4.99 mil/uL (4.50-6.00); RDW 14.4 % (10.5-14.5)
[2017-04-24 11:32] LABS: CSF LYMPHOCYTES 71 %; CSF OTHER 3
[2017-04-26 17:10] LABS: CSF VDRL Non Reactive (Non Rea:<1:1)
== END 2017-04-23 20:25 | disposition left against medical advice (07) | DRG 977 ==
LOC: ER 13:41 → EROBS 17:45 → 3N 17:45
PROVIDERS: Emergency Medicine; Family Medicine
PROC: 009U3ZX Drainage of Spinal Canal, Percutaneous Approach, Diagnostic (ICD-10-PCS; principal; 2017-04-22)
DX: B20 Human immunodeficiency virus [HIV] disease (principal); G03.9 Meningitis, unspecified; B45.1 Cerebral cryptococcosis; R51 Headache; F17.210 Nicotine dependence, cigarettes, uncomplicated; R27.0 Ataxia, unspecified; F15.10 Other stimulant abuse, uncomplicated; R41.0 Disorientation, unspecified; Z87.81 Personal history of (healed) traumatic fracture; Z87.440 Personal history of urinary (tract) infections; Z79.899 Other long term (current) drug therapy; Z88.8 Allergy status to other drugs, medicaments and biological substances; Z88.2 Allergy status to sulfonamides; Z91.19 Patient's noncompliance with other medical treatment and regimen; Z80.9 Family history of malignant neoplasm, unspecified
CPT/HCPCS: 10096

== ENCOUNTER 2020-12-16 18:04 | Emergency (ER) | payer OTHER ==
[~2020-12-16] VITALS: Ht 177.8 cm; Wt 68.0 kg
[2020-12-16] MEDS ORDERED: NEOMYCIN-POLY-7.5 ML OPHTHALMIC (19:28)
[2020-12-16 19:40] VITALS: BP 124/47
== END 2020-12-16 19:40 | disposition home or self-care (01) ==
LOC: ER 18:04
DX: S05.02XA Injury of conjunctiva and corneal abrasion without foreign body, left eye, initial encounter (principal); F17.210 Nicotine dependence, cigarettes, uncomplicated; Z98.890 Other specified postprocedural states; Z79.899 Other long term (current) drug therapy; Z88.6 Allergy status to analgesic agent; Z88.2 Allergy status to sulfonamides; W22.8XXA Striking against or struck by other objects, initial encounter; Y93.89 Activity, other specified; Y92.89 Other specified places as the place of occurrence of the external cause; Y99.8 Other external cause status